=== PATIENT | male | born 1985 | race Caucasian/White ===

== ENCOUNTER 2020-06-28 21:37 | Emergency (ER) | payer SELFPAY ==
[~2020-06-28] VITALS: Ht 172.7 cm; Wt 79.0 kg
[~2020-06-28 21:37] MED LIST: ARIP30TA4 PO
[2020-06-28] MEDS ORDERED: MIDAZOLAM HCL/PF 5 MG/5 ML VIAL. ONE (21:42)
[2020-06-28] MEDS ORDERED: HALOPERIDOL LACTATE 5 MG/ML VIAL. ONE (21:42)
--- NOTE | 2020-06-28 21:57 | PHYS DOC ---
Past Medical History Past Medical History: Unknown Past Surgical History: Other Additional Past Surgical Histo: UNKNOWN Smoking Status: Former Smoker Alcohol Use: Occasionally General Adult HPI: HPI: 34-year-old male past medical history significant for bipolar disorder, presents to the ED brought in by EMS with concern for bizarre behavior while at work at [employer]. In ED patient singing " I will always love you," and then screaming "You you are my father." Patient is able to tell us his name and date of but is very disorganized. Is shaking and not able to verbally redirect or de-escalate, was sedated for his safety and evaluation. EMR was reviewed and patient was here 2 months ago and required sedation with Zyprexa. Was admitted for rhabdomyolysis. Is not compliant with his Abilify. Patient does state he has missed his Abilify today. Drug screen was positive for benzos. Review of Systems: Review of Systems: ROS: Unobtainable due to patient's mental status Heart Score: Risk Factors: Risk Factors: DM, Current or recent (<one month) smoker, HTN, HLP, family history of CAD, obesity. Risk Scores: Score 0 - 3: 2.5% MACE over next 6 weeks - Discharge Home Score 4 - 6: 20.3% MACE over next 6 weeks - Admit for Clinical Observation Score 7 - 10: 72.7% MACE over next 6 weeks - Early Invasive Strategies Current Medications: Current Medications Medications (Trade) Dose Ordered Sig/Pina Start Time Stop Time Status Last Admin Dose Admin Haloperidol Lactate (Haldol Inj) 5 mg STK-MED ONCE 06/28/20 21:42 06/28/20 21:43 DC Midazolam HCl (Versed) 5 mg STK-MED ONCE 06/28/20 21:42 06/28/20 21:43 DC Allergies: Allergies: Allergies Coded Allergies Type Severity Reaction Last Updated Verified quetiapine Allergy Intermediate 05/03/20 Yes Physical Exam: PE: Constitutional: forced eye closure, pressing closed fists together while singing/shouting coherent unrelated statements ("I miss my mother") HENT: Normocephalic, atraumatic, Eyes: ESE (3mm bl), EOMI, conjunctiva normal, no discharge. Neck: Normal range of motion, supple, Cardiovascular: S1/2 present, regular rhythm, tachycardic Lungs & Thorax: Speaking in full sentences, bilateral equal chest rise, no tachypnea or increased work of breathing Abdomen: soft, no tenderness, Skin: Warm, dry, no erythema, no rash. [] Back: No midline tenderness, no CVA tenderness. [] Extremities: No tenderness, no cyanosis, no edema Neurologic: Alert to name /month, moving all 4 extremities Psychologic: emotional -crying, sharking/tremulous EKG: EKG: Sinus rhythm 82 bpm, no axis deviation, normal intervals, no T wave inversions, no ST elevations or ST depressions Radiology/Procedures: Radiology/Procedures: [] Course & Med Decision Making: Course & Med Decision Making Pertinent Labs and Imaging studies reviewed. (See chart for details) On sober evaluation patient alert and oriented x3 with decision-making capacity. Reports Dr. Henry at [facility] prescribes his abilify he has been noncompliant for the past 2 to 3 days. Denies any alcohol or drug use. Denies any SI/HI. Has a safe to return home to (2 roommates). Will discharge home with strict ED return precautions were given for trauma, SI or HI. Encouraged urgent outpatient follow-up with PMD and psychiatry. Life-threatening processes were considered b ut are low suspicion at this time, given history, physical exam and ED workup. Pt was educated on all prescription medications and adverse effects. All patient's questions were answered and pt was stable at time of discharge. Life/limb-threatening differential includes but is not limited to, end organ damage/sepsis, trauma/abuse/neglect, neurologic deficit, alcohol/drug ingestion, toxidrome, suicidal/homicidal ideations plans or attempts, psychosis or mental illness resulting in self neglect and inability to care for self. I spoken with the patient and her caregivers. I explained the patient's condition, diagnoses and treatment plan based on the information available to me at this time. I have answered the patient and her caregiver's questions and addressed any concerns. The patient and her caregivers have a good understanding of patient's diagnosis, condition and treatment plan as can be expected at this point. Vital signs have been stable. Patient's condition is stable and appropriate for discharge from the emergency department. Patient will pursue further outpatient evaluation with primary care physician or other designated or consulting physician as outlined in the discharge instructions. The patient and/or caregivers are agreeable to this plan of care and follow-up instructions have been explained in detail. The patient and/or caregivers have received these instructions in written form and have expressed an understanding of the discharge instructions. The patient and/or caregivers are aware that any significant change of condition or worsening of symptoms should prompt immediate return to this or the closest emergency department or call to 911Rcahelle Roberts Disclaimer: Armando Disclaimer: This electronic medical record was generated, in whole or in part, using a voice recognition dictation system. Departure Departure Impression: Primary Impression: Agitation requiring sedation protocol Additional Impression: Bipolar 1 disorder Disposition: 01 DC HOME SELF CARE/HOMELESS Condition: STABLE Referrals: NO PCP (PCP) FOLLOW UP WITH FAMILY MEDICINE: Family Medicine Address: [address] [place] [address] Patient Instructions: Basics of Medication Management, Manic Depression (Bipolar Disorder) Additional Instructions: FOLLOW UP WITH PSYCHIATRY: Dr. Gomez [facility] Psychiat[facility] [address] [place], [place] [address] EMERGENCY DEPARTMENT GENERAL DISCHARGE INSTRUCTIONS Thank you for coming to [facility] Emergency Department (ED) today and trusting us with you care. We trust that you had a positive experience in our Emergency Department. If you wish to speak to the department management, you may call the Director at [phone]. YOUR FOLLOW UP INSTRUCTIONS ARE FOLLOWS: 1. Do you have a private Doctor? If you do not have a private doctor, please ask for a resource list of physicians or clinics that may be able to assist you with follow up care. 2. The Emergency Physicain has interpreted your x-rays. The X-Ray specialist will also review them. If there is a change in the findings, you will be notified in 48 hours when at all possible. 3. A lab test or culture has been done, your results will be reviewed and you will be notified if you need a change in treatment. ADDITIONAL INSTRUCTIONS AND INFORMATION: 1. Your care today has been supervised by a physician who is specially trained in emergency care. Many problems require more than one evaluation for a complete diagnosis and treatment. We recommend that you schedule your follow up appointment as recommended to ensure complete treatment of you illness or injury. If you are unable to obtain follow up care and continue to have a problem, or if your condition worsens, we recommend that you return to the ED. 2. We are not able to safely determine your condition over the phone nor are we able to give sound medical advice over the phone. For these safety reasons, if you call for medical advice we will ask you to come to the ED for further evaluation. 3. If you have any questions regarding these discharge instructions please call the ED at [phone]. SAFETY INFORMATION: In the interest of safety, wellness, and injury prevention; we encourage you to wear your sealbelt, if you smoke; quite smoking, and we encourage family to use a protective helmet for bicycling and other sporting events that present an increased risk for head injury. IF YOUR SYMPTOMS WORSEN OR NEW SYMPTOMS DEVELOP, OR YOU HAVE CONCERNS ABOUT YOUR CONDITION; OR IF YOUR CONDITION WORSENS WHILE YOU ARE WAITING FOR YOUR FOLLOW UP APPOINTMENT; EITHER CONTACT YOUR PRIMARY CARE DOCTOR, THE PHYSICIAN WHOSE NAME AND NUMBER YOU WERE GIVEN, OR RETURN TO THE ED IMMEDIATELY. SORIN MITCHELL DO Jun 28, 2020 21:57
[2020-06-28 21:59] LABS: BASO % 1 % (0-3); EOS # 0.1 x10^3/uL (0.0-0.7); EOS % 1 % (0-3); HEMATOCRIT 43.6 % (39.0-53.0); HEMOGLOBIN 14.8 g/dL (13.0-17.5); LYMPH # 1.1 x10^3/uL (1.0-4.8); LYMPH % 17 % (24-48); MEAN CORPUSCULAR HEMOGLOBIN 30 pg (25-35); MEAN CORPUSCULAR HGB CONC 34 g/dL (31-37); MEAN CORPUSCULAR VOLUME 88 fL (79-100); MONO # 0.5 x10^3/uL (0.0-1.1); MONO % 7 % (0-9); NEUT # 4.8 x10^3/uL (1.8-7.7); NEUT % 75 % (31-73); PLATELET COUNT 187 x10^3/uL (140-400); RED BLOOD COUNT 4.99 x10^6/uL (4.30-5.70); RED CELL DISTRIBUTION WIDTH 13.7 % (11.5-14.5); WHITE BLOOD COUNT 6.5 x10^3/uL (4.0-11.0)
[2020-06-28 22:08] LABS: CALCIUM 9.3 mg/dL (8.5-10.1); GFR 86.1; POTASSIUM 4.1 mmol/L (3.5-5.1)
[2020-06-28] MEDS ORDERED: MIDAZOLAM HCL/PF 5 MG/5 ML VIAL. NS ONE (22:30)
[2020-06-28] MEDS ORDERED: IV NORMAL SALINE 1000ML BAG 1,000 ML IV ONE ×2 (22:30)
[2020-06-28] MEDS ORDERED: HALOPERIDOL LACTATE 5 MG/ML VIAL. IVP ONE (22:30)
[2020-06-29 00:09] LABS: AMPHETAMINE/METHAMPHETAMINE NEG (NEG); BARBITURATES NEG (NEG); BENZODIAZEPINES POS (NEG); CANNABINOIDS NEG (NEG); COCAINE NEG (NEG); METHADONE NEG (NEG); OPIATES NEG (NEG); PHENCYCLIDINE NEG (NEG)
[2020-06-29 02:00] VITALS: BP 99/56
--- NOTE | 2020-06-29 13:07 | EKG ---
[facility] [address] [place] [address] Test Date: 2020-06-28 Test Time: 22:07:56 Pat Name: YUNI MAS Department: Room: Gender: M Load Dispatcher Local: : 1985 Requested By: SORIN GALLO Order Number: [id number] Reading MD: Measurements Intervals Martin Rate: 82 P: 51 NM: 190 QRS: 26 QRSD: 90 T: 38 QT: 362 QTc: 426 Interpretive Statements SINUS RHYTHM OTHERWISE NORMAL ECG RI6.02 No previous ECG available for comparison
== END 2020-06-29 02:00 | disposition home or self-care (01) ==
LOC: ER 21:37
DX: R45.1 Restlessness and agitation (principal); F31.9 Bipolar disorder, unspecified; M62.82 Rhabdomyolysis; Z87.891 Personal history of nicotine dependence; Z98.890 Other specified postprocedural states; Z88.8 Allergy status to other drugs, medicaments and biological substances
CPT/HCPCS: 36415; 80048; 80307; 82550; 84484; 85025; 93005; 96361; 96374; 99285; G0480; J1630; J2250; J7030

== ENCOUNTER 2020-07-25 21:04 | Emergency (ER) | payer SELFPAY ==
[~2020-07-25] VITALS: Ht 177.8 cm; Wt 90.0 kg
--- NOTE | 2020-07-25 21:23 | PHYS DOC ---
Past Medical History Past Medical History: Schizophrenia Additional Past Medical Histor: (SCHIZOPHRENIA PER EMS) Past Surgical History: Other Additional Past Surgical Histo: UNKNOWN Smoking Status: Former Smoker Alcohol Use: None General Adult HPI: HPI: Patient is a 34-year-old presenting via EMS for acute psychosis. Patient has history of schizophrenia, was at work at local [employer] when he started having acute psychotic episode. Coworkers observed this and called EMS. On arrival, patient was acutely agitated and psychotic, admitting auditory hallucinations and voicing thoughts of self-harm, he was noncompliant during evaluation and subsequently placed in soft restraints and transported to our facility for evaluation. On arrival, patient is AAOx3. Admits ongoing auditory hallucinations and has active suicidal ideation because "the voices are telling me to". Tells me that "I can tell you are really bothered about your mother, let me pray for her". There has been no trauma, no falls, no syncope, fever, COVID-19 contact, chest pain, shortness of breath, abdominal pain, symptoms, motor or sensory function changes. States he is supposed to take medications, unsure what they are, unsure if he has been taking them recently Review of Systems: Review of Systems: Fourteen body systems of review of systems have been reviewed. See HPI for pertinent positives and negative responses, other james all other systems are negative, non-pertinent or non-contributory Heart Score: HEART Score for Chest Pain: HEART Score for Chest Pain Response (Comments) Value History Slighlty/Non-Suspicious 0 ECG Normal 0 Age < 45 0 Risk Factors 1 or 2 Risk Factors 1 Troponin < Normal Limit 0 Total 1 Risk Factors: Risk Factors: DM, Current or recent (<one month) smoker, HTN, HLP, family history of CAD, obesity. Risk Scores: Score 0 - 3: 2.5% MACE over next 6 weeks - Discharge Home Score 4 - 6: 20.3% MACE over next 6 weeks - Admit for Clinical Observation Score 7 - 10: 72.7% MACE over next 6 weeks - Early Invasive Strategies Allergies: Allergies: Allergies Coded Allergies Type Severity Reaction Last Updated Verified quetiapine Allergy Intermediate 05/03/20 Yes Physical Exam: PE: Constitutional: Pt is oriented to person, place, and time. Pt appears well-developed and well- nourished. HEENT: Head: Normocephalic and atraumatic. TMs clear, no hemotympanum Conjunctivae and EOM are normal. Pupils are equal, round, and reactive to light. Oropharynx is clear and moist. No hematomas or lacerations or abrasions to face or scalp OP clear, no blood, no malocclusion, dentition intact Nares clear, no nasal septal hematoma Midface stable Neck: C-spine midline nontender, no step-offs Cardiovascular: Normal rate, regular rhythm and normal heart sounds. Pulmonary/Chest: Effort normal and breath sounds normal. No respiratory distress. No wheezes. CTA bilaterally Abdominal: Soft. Bowel sounds are normal. Pt exhibits no distension. There is no tenderness. Musculoskeletal: No bony tenderness to extremities, no deformities, full ROM extremities Chest wall stable Pelvis stable and non-tender No vertebral TTP and spine without stepoffs Neurological: Pt is alert and oriented to person, place, and time. Moving all extremities willfully, able to wiggle all fingers and toes Alert and oriented x 3 Sensation grossly intact Skin: Skin is warm and dry. No abrasions, no lacerations Psychiatric: Paranoid with scattered thought process, appears delusional, admitting ongoing auditory hallucinations, odd affect Current Patient Data: Labs: Laboratory Tests Test 07/25/20 21:19 07/25/20 21:43 07/25/20 22:10 White Blood Count 5.9 x10^3/uL Red Blood Count 4.79 x10^6/uL Hemoglobin 14.1 g/dL Hematocrit 41.6 % Mean Corpuscular Volume 87 fL Mean Corpuscular Hemoglobin 29 pg Mean Corpuscular Hemoglobin Concent 34 g/dL Red Cell Distribution Width 13.6 % Platelet Count 190 x10^3/uL Neutrophils (%) (Auto) 62 % Lymphocytes (%) (Auto) 27 % Monocytes (%) (Auto) 9 % Eosinophils (%) (Auto) 2 % Basophils (%) (Auto) 0 % Neutrophils # (Auto) 3.7 x10^3/uL Lymphocytes # (Auto) 1.6 x10^3/uL Monocytes # (Auto) 0.5 x10^3/uL Eosinophils # (Auto) 0.1 x10^3/uL Basophils # (Auto) 0.0 x10^3/uL Sodium Level 142 mmol/L Potassium Level 4.0 mmol/L Chloride Level 107 mmol/L Carbon Dioxide Level 26 mmol/L Anion Gap 9 Blood Urea Nitrogen 16 mg/dL Creatinine 1.3 mg/dL Estimated GFR (Cockcroft-Gault) 63.6 BUN/Creatinine Ratio 12 Glucose Level 109 mg/dL Calcium Level 9.3 mg/dL Total Bilirubin 0.2 mg/dL Aspartate Amino Transf (AST/SGOT) 16 U/L Alanine Aminotransferase (ALT/SGPT) 31 U/L Alkaline Phosphatase 92 U/L Troponin I Quantitative < 0.017 ng/mL Total Protein 6.7 g/dL Albumin 4.0 g/dL Albumin/Globulin Ratio 1.5 Salicylates Level < 2.8 mg/dL Salicylate Last Dose Date Unknown Salicylate Last Dose Time Unknown Acetaminophen Level < 2 mcg/ml Acetaminophen Last Dose Date Unknown Acetaminophen Last Dose Time Unknown Ethyl Alcohol Level < 10 mg/dL Urine Collection Type Unknown Urine Color Yellow Urine Clarity Clear Urine pH 6.0 Urine Specific Ell[place] 1.025 Urine Protein Negative mg/dL Urine Glucose (UA) Negative mg/dL Urine Ketones (Stick) Trace mg/dL Urine Blood Negative Urine Nitrite Negative Urine Bilirubin Negative Urine Urobilinogen Dipstick 0.2 mg/dL Urine Leukocyte Esterase Negative Urine RBC 0 /HPF Urine WBC 1-4 /HPF Urine Squamous Epithelial Cells Occ /LPF Urine Bacteria Few /HPF Urine Mucus Slight /LPF Urine Sperm Present /HPF Urine Opiates Screen Neg Urine Methadone Screen Neg Urine Barbiturates Neg Urine Phencyclidine Screen Neg Urine Amphetamine/Methamphetamine Neg Urine Benzodiazepines Screen Neg Urine Cocaine Screen Neg Urine Cannabinoids Screen Neg Urine Ethyl Alcohol Neg SARS-CoV-2 Antigen (Rapid) Negative Current Medications Medications (Trade) Dose Ordered Sig/Pina Route PRN Reason Start Time Stop Time Status Last Admin Dose Admin Haloperidol Lactate (Haldol Inj) 5 mg STK-MED ONCE .ROUTE 07/25/20 21:49 07/25/20 21:49 DC Diphenhydramine HCl (Benadryl) 50 mg STK-MED ONCE .ROUTE 07/25/20 21:49 07/25/20 21:49 DC Lorazepam (Ativan Inj) 2 mg STK-MED ONCE .ROUTE 07/25/20 21:49 07/25/20 21:49 DC Ketamine HCl (Ketamine) 500 mg STK-MED ONCE .ROUTE 07/25/20 21:56 07/25/20 21:56 DC Diphenhydramine HCl (Benadryl) 50 mg 1X ONCE IVP 07/25/20 23:00 07/25/20 23:01 DC 07/25/20 21:50 Haloperidol Lactate (Haldol Inj) 5 mg 1X ONCE IVP 07/25/20 23:00 07/25/20 23:01 DC 07/25/20 21:50 Lorazepam (Ativan Inj) 2 mg 1X ONCE IVP 07/25/20 23:00 07/25/20 23:01 DC 07/25/20 21:50 Ketamine HCl (Ketamine) 400 mg 1X ONCE IV 07/25/20 23:00 07/25/20 23:01 DC 07/25/20 22:00 Vital Signs: Vital Signs Date Time Temp Pulse Resp B/P (MAP) Pulse Ox O2 Delivery O2 Flow Rate FiO2 07/26/20 03:04 60 16 103/61 (75) 96 Room Air 07/26/20 02:04 88 16 103/65 (78) 97 Room Air 07/26/20 01:10 67 16 97/54 (68) 95 Room Air 07/26/20 00:10 83 16 121/71 (88) 96 Room Air 07/25/20 23:26 88 18 125/70 (88) 96 Room Air 07/25/20 22:38 89 16 134/75 (94) 95 Room Air 07/25/20 22:00 104 16 175/92 (119) 96 Room Air 07/25/20 21:05 97.6 80 18 129/80 (96) 97 Room Air 97.6 EKG: EKG: EKG ordered and interpreted by myself at 21 3 0 hours as sinus rhythm at 85 bpm, IN 200 otherwise unremarkable intervals, no axis deviation, no acute ischemic findings, no STEMI Radiology/Procedures: Radiology/Procedures: [] Course & Med Decision Making: Course & Med Decision Making Patient presented acutely psychotic, initially was reasonable albeit psychotic with ongoing auditory homicidal and suicidal ideation Patient be came acutely agitated and ER, required 5+ medical and security personnel to restrain patient, kicked myself and hurt other various members attempting to physically subdue patient after verbal attempts failed B-52 administered with minimal relief in acute agitation, decision was made to administer 400 mg IV ketamine that quickly improved patient's acute psychotic episode Patient stabilized but given fear of ongoing homicidal and suicidal ideation with erratic behavior, decision was made to place patient in violent restraints. These were in place for 4 hours status post outburst and on reevaluation by myself, patient more calm and appropriate and these were removed Patient reassessed by myself, more calm, AOx4. I feel he is appropriate for repeat evaluation by behavioral health provider. Behavioral health provider came in and reassessed patient with decision made to discharge with safety plan in place. I reviewed the safety plan and agree for discharge. Please refer to qualified mental health professional's documentation for details regarding this decision. Will discharge patient with appropriate mental health resources and follow up. Dragon Disclaimer: Widespace Disclaimer: This electronic medical record was generated, in whole or in part, using a voice recognition dictation system. Departure Departure Impression: Primary Impression: Psychosis Additional Impressions: Schizophrenia Suicidal ideation Disposition: 01 DC HOME SELF CARE/HOMELESS Condition: IMPROVED Referrals: NO PCP (PCP) Patient Instructions: Schizophrenia Additional Instructions: As discussed prior to ER departure, please call your primary care provider and mental health providers today to review ER visit. If any concerning signs or symptoms present prior to outpatient follow-up please do not hesitate to come back for repeat evaluation. Please utilize your safety plan that was discharged with you prior to ER departure for review if any concerning signs or symptoms present. It was a pleasure to take care of you and I wish you the best going forward WENDY WAHL DO Jul 25, 2020 21:23
[2020-07-25 21:32] LABS: BASO % 0 % (0-3); EOS # 0.1 x10^3/uL (0.0-0.7); EOS % 2 % (0-3); HEMATOCRIT 41.6 % (39.0-53.0); HEMOGLOBIN 14.1 g/dL (13.0-17.5); LYMPH # 1.6 x10^3/uL (1.0-4.8); LYMPH % 27 % (24-48); MEAN CORPUSCULAR HEMOGLOBIN 29 pg (25-35); MEAN CORPUSCULAR HGB CONC 34 g/dL (31-37); MEAN CORPUSCULAR VOLUME 87 fL (79-100); MONO # 0.5 x10^3/uL (0.0-1.1); MONO % 9 % (0-9); NEUT # 3.7 x10^3/uL (1.8-7.7); NEUT % 62 % (31-73); PLATELET COUNT 190 x10^3/uL (140-400); RED BLOOD COUNT 4.79 x10^6/uL (4.30-5.70); RED CELL DISTRIBUTION WIDTH 13.6 % (11.5-14.5); WHITE BLOOD COUNT 5.9 x10^3/uL (4.0-11.0)
[2020-07-25 21:36] LABS: CALCIUM 9.3 mg/dL (8.5-10.1); CREATININE 1.3 mg/dL (0.7-1.3); GFR 63.6
[2020-07-25 21:41] LABS: ALBUMIN/GLOBULIN RATIO 1.5 (1.0-1.7); TOTAL BILIRUBIN 0.2 mg/dL (0.2-1.0); TOTAL PROTEIN 6.7 g/dL (6.4-8.2)
[2020-07-25 21:47] LABS: ACETAMIN < 2 mcg/ml (10-30); ETHANOL < 10 mg/dL (0-10); SALIC < 2.8 mg/dL (2.8-20.0)
[2020-07-25] MEDS ORDERED: HALOPERIDOL LACTATE 5 MG/ML VIAL. ONE (21:49)
[2020-07-25] MEDS ORDERED: diphenhydrAMINE 50 MG/ML VIAL ONE (21:49)
[2020-07-25 21:55] LABS: BILIRUBIN,URINE NEGATIVE (NEG); CLARITY,URINE CLEAR; COLOR,URINE YELLOW; NITRITE,URINE NEGATIVE (NEG); PROTEIN,URINE NEGATIVE (NEG-TRACE); UROBILINOGEN,URINE 0.2 mg/dL (0.2 mg/dL)
[2020-07-25] MEDS ORDERED: KETAMINE HCL 500 MG/10 ML VIAL. ONE (21:56)
[2020-07-25 22:04] LABS: BACTERIA,URINE FEW /HPF (0-FEW); RBC,URINE 0 /HPF (0-2); SPERM,URINE PRESENT /HPF
[2020-07-25 22:08] LABS: BARBITURATES NEG (NEG); BENZODIAZEPINES NEG (NEG); CANNABINOIDS NEG (NEG); COCAINE NEG (NEG); METHADONE NEG (NEG); OPIATES NEG (NEG); PHENCYCLIDINE NEG (NEG)
[2020-07-25 22:11] LABS: AMPHETAMINE/METHAMPHETAMINE NEG (NEG)
[2020-07-25] MEDS ORDERED: diphenhydrAMINE 50 MG/ML VIAL IVP ONE (23:00)
[2020-07-25] MEDS ORDERED: HALOPERIDOL LACTATE 5 MG/ML VIAL. IVP ONE (23:00)
[2020-07-25] MEDS ORDERED: KETAMINE HCL 500 MG/10 ML VIAL. IV ONE (23:00)
[2020-07-26 03:04] VITALS: BP 103/61
--- NOTE | 2020-07-29 09:51 | NUR ---
IP: Attempted to contact pt concerning COVID results. No answer.
== END 2020-07-26 06:17 | disposition home or self-care (01) ==
LOC: ER 21:04
DX: F23 Brief psychotic disorder (principal); Z20.822 Contact with and (suspected) exposure to COVID-19; R45.851 Suicidal ideations; Z87.891 Personal history of nicotine dependence; Z98.890 Other specified postprocedural states; Z88.8 Allergy status to other drugs, medicaments and biological substances
CPT/HCPCS: 36415; 80053; 80307; 80329; 81001; 84484; 85025; 87426; 96374; 96375; 99285; C9803; G0480; J1200; J1630; J2060; J3490; U0003